=== PATIENT | male | born 1980 | race Caucasian/White ===

== ENCOUNTER 2017-11-27 00:47 | Emergency (ER) | payer OTHER ==
[~2017-11-27] VITALS: Ht 175.3 cm; Wt 72.6 kg
[~2017-11-27 00:47] MED LIST: Amox Tr-K Clv1 EAC2 PO; Amoxicillin500 MG PO; CEPH500 PO; CHLO25 PO; Cleocin HCl300 MG PO; Crutch1 EACH MISC; IBUP400 PO; IBUP800 PO; Keflex500 MG PO; LISI20 PO; LORTAB 10 MG-3473 ML PO; MAGIC MOUTHWASH; Naprosyn500 MG PO; Norco 10-325 T1 EACH PO; Norco 5-325 Ta1 EACH PO; ONDA4 PO; Roxicodone5 MG PO; Silvadene20 GM TOP; Ultram50 MG PO; Vibramycin100 MG PO
== END 2017-11-27 01:05 | disposition left against medical advice (07) ==
LOC: ER 00:47
DX: Z53.21 Procedure and treatment not carried out due to patient leaving prior to being seen by health care provider (principal)
CPT/HCPCS: 99281

== ENCOUNTER 2017-11-29 19:26 | Emergency (ER) | payer OTHER | END 2017-11-29 20:17 | disposition left against medical advice (07) | LOC: ER 19:26 | DX: Z53.21 Procedure and treatment not carried out due to patient leaving prior to being seen by health care provider (principal) ==

== ENCOUNTER 2017-11-29 20:39 | Emergency (ER) | payer OTHER ==
[~2017-11-29] VITALS: Ht 175.3 cm; Wt 72.6 kg
== END 2017-11-29 21:48 ==
LOC: ER 20:39
DX: F10.129 Alcohol abuse with intoxication, unspecified (principal); Z02.89 Encounter for other administrative examinations; F17.210 Nicotine dependence, cigarettes, uncomplicated; Z88.5 Allergy status to narcotic agent; Z86.19 Personal history of other infectious and parasitic diseases; Z90.49 Acquired absence of other specified parts of digestive tract; Y90.8 Blood alcohol level of 240 mg/100 ml or more
CPT/HCPCS: 99283

== ENCOUNTER 2017-12-13 12:10 | Emergency (ER) | payer OTHER ==
[~2017-12-13] VITALS: Ht 165.1 cm; Wt 79.4 kg
== END 2017-12-13 12:44 ==
LOC: ER 12:10
DX: F10.129 Alcohol abuse with intoxication, unspecified (principal); Z59.0 Homelessness; F17.210 Nicotine dependence, cigarettes, uncomplicated; Z88.5 Allergy status to narcotic agent; Z86.19 Personal history of other infectious and parasitic diseases
CPT/HCPCS: 99283